=== PATIENT | female | born 1955 | race Two or more races ===

== ENCOUNTER 2023-05-29 15:15 | Inpatient (IN) | payer OTHER ==
[~2023-05-29] VITALS: Ht 154.9 cm; Wt 199.6 kg
[2023-05-29] MEDS ORDERED: DITROPAN XL5 MG (15:18)
[2023-05-29] MEDS ORDERED: FUSION CAPSULE1 EACH PO (15:19)
[2023-05-29] MEDS ORDERED: LASIX20 MG (15:19)
[2023-05-29] MEDS ORDERED: TOPROL XL25 M1 (15:19)
[2023-05-29] MEDS ORDERED: PROBIOTIC1 EAC4 (15:19)
[2023-05-29] MEDS ORDERED: LEVOTHYROXINE25 MCG PO (15:19)
[2023-05-29] MEDS ORDERED: ATACAND4 MG (15:19)
[2023-05-29 17:14] LABS: PH,URINE 6.5 (5.0-8.0); URINE APPEARANCE Clear; URINE BILIRRUBIN Negative (NEGATIVE); URINE BLOOD NHT; URINE COLOR Yellow; URINE GLUCOSE Negative (NEGATIVE); URINE LEUKOCYTE Trace; URINE NITRATE Positive; URINE PROTEIN Negative (NEGATIVE); URINE UROBILINOGEN 0.2 E.U./dl
[2023-05-29 17:18] LABS: URINE BACTERIA 38.6 uL (0.0-1933); URINE EPITHELIAL CELLS 110.1 uL (0.0-38.8); URINE RBC 45.9 uL (0.0-20.8); URINE WBC 40.2 uL (0.0-23.2)
[2023-05-29 17:23] LABS: HEMATOCRIT 26.4 % (36.0-45.00); MEAN CELL VOLUME 75.6 fL (80.00-100.00); MEAN CORPUSCULAR HEMOGLOBIN 23.4 pg (27.00-32.0); MEAN CORPUSCULAR HGB CONC 30.9 g/dl (32.0-36.0); PLATELET COUNT 531 K/uL (150-450); RED BLOOD COUNT 3.49 M/uL (4.00-6.00)
[2023-05-29 17:26] LABS: HEMOGLOBIN 8.2 g/dL (12.0-15.00)
[2023-05-29 17:35] LABS: CALCIUM 8.9 mg/dL (8.5-10.1); CREATININE SERUM 0.5 mg/dL (0.55-1.02); GFR 122.69; POTASSIUM 3.26 mEq/L (3.5-5.1)
[2023-05-29 17:41] LABS: URINE YEAST FEW /hpf
[2023-05-29 17:42] LABS: INR 1.37; PROTHROMBIN TIME 14.1 SECONDS (9.0-11.5)
[2023-05-29 17:43] LABS: PARTIAL THROMBOPLASTIN TIME 41.2 SECONDS (22.0-34.0)
[2023-05-30 08:08] LABS: MEAN CORPUSCULAR HEMOGLOBIN 23.7 pg (27.00-32.0); MEAN CORPUSCULAR HGB CONC 31.2 g/dl (32.0-36.0); PLATELET COUNT 498 K/uL (150-450); RED BLOOD COUNT 3.28 M/uL (4.00-6.00); RED CELL DISTRIBUTION WIDTH 15.6 % (11.5-14.5)
[2023-05-30 08:14] LABS: URINE APPEARANCE Clear; URINE BILIRRUBIN Negative (NEGATIVE); URINE BLOOD Trace; URINE COLOR Yellow; URINE GLUCOSE Negative (NEGATIVE); URINE LEUKOCYTE Trace; URINE NITRATE Negative; URINE PROTEIN Negative (NEGATIVE); URINE UROBILINOGEN 0.2 E.U./dl
[2023-05-30 08:15] LABS: URINE BACTERIA 21.7 uL (0.0-1933); URINE EPITHELIAL CELLS 18.4 uL (0.0-38.8); URINE RBC 4.2 uL (0.0-20.8); URINE WBC 33.1 uL (0.0-23.2)
[2023-05-30 08:19] LABS: ALBUMIN 2.3 gm/dL (3.4-5.0); ALKALINE PHOSPHATASE 106 U/L (50-136); ALT/SGPT 12 U/L (12-78); ANION GAP 5 (10.0-20.0); AST/SGOT 14 U/L (15-37); BILIRUBIN TOTAL 0.24 mg/dL (0.3-1.2); BILIRUBIN,CONJUGATED < 0.10 mg/dL (0.0-0.2); BILIRUBIN,UNCONJUGATED 0.14 mg/dL (0.0-0.6); BLOOD UREA NITROGEN 11 mg/dL (7-18); BUN CREA RATIO 22 (7.0-25.0); CALCIUM 7.9 mg/dL (8.5-10.1); CARBON DIOXIDE 33 mEq/L (21-32); CHLORIDE 103 mmol/L (98-107); CHOL HDL RATIO 4.1 (0-5.0); CHOLESTEROL 122 mg/dL (0-200); CREATININE SERUM 0.49 mg/dL (0.55-1.02); GFR 125.59; GLOBULINA 4.7 G/DL (2.4-3.5); GLUCOSE FASTING 128 mg/dL (65-100); HDL 30 mg/dl (40-60); LDL 70 mg/dl (0-130); OSMOLALITY SERUM 277 MOSM/KG (275-295); POTASSIUM 3.49 mEq/L (3.5-5.1); SODIUM 138 mmol/L (136-145); TRIGLYCERIDES 109 mg/dL (0-150); VLDL 21 (0-39)
[2023-05-30 09:02] LABS: HEMATOCRIT 24.9 % (36.0-45.00)
[2023-05-30 09:03] LABS: HEMOGLOBIN 7.8 g/dL (12.0-15.00)
[2023-05-30 09:20] LABS: ERYTHROCYTE SEDIMENTATION RATE > 130 mm/hr
[2023-05-30 18:27] LABS: ob POSITIVE (NEGATIVE)
[2023-05-31 19:54] LABS: CREATININE SERUM 0.37 mg/dL (0.55-1.02); GFR 173.67; POTASSIUM 3.75 mEq/L (3.5-5.1)
[2023-06-01 07:04] LABS: HEMATOCRIT 26.5 % (36.0-45.00); HEMOGLOBIN 8.6 g/dL (12.0-15.00); MEAN CELL VOLUME 76.9 fL (80.00-100.00); MEAN CORPUSCULAR HGB CONC 32.4 g/dl (32.0-36.0); PLATELET COUNT 443 K/uL (150-450); RED BLOOD COUNT 3.44 M/uL (4.00-6.00); RED CELL DISTRIBUTION WIDTH 16.6 % (11.5-14.5)
[2023-06-01 08:32] LABS: LDH 151 U/L (84-246); PHOSPHOKINASE CREATININE 27 U/L (26-192)
[2023-06-01 08:38] LABS: CKMB < 1.0 NG/ML (0.5-3.6)
[2023-06-02 10:10] LABS: HEMATOCRIT 26.7 % (36.0-45.00); MEAN CELL VOLUME 78.5 fL (80.00-100.00); MEAN CORPUSCULAR HEMOGLOBIN 23.2 pg (27.00-32.0); MEAN CORPUSCULAR HGB CONC 29.6 g/dl (32.0-36.0); PLATELET COUNT 470 K/uL (150-450); RED CELL DISTRIBUTION WIDTH 16.6 % (11.5-14.5)
[2023-06-02 10:16] LABS: HEMOGLOBIN 7.9 g/dL (12.0-15.00)
[2023-06-04 07:01] LABS: FERRITIN 41.5 NG/ML (8-252)
[2023-06-04 11:22] LABS: HEMATOCRIT 32.4 % (36.0-45.00); MEAN CELL VOLUME 79.9 fL (80.00-100.00); PLATELET COUNT 440 K/uL (150-450); RED BLOOD COUNT 4.05 M/uL (4.00-6.00); RED CELL DISTRIBUTION WIDTH 17.3 % (11.5-14.5)
[2023-06-04 11:24] LABS: MEAN CORPUSCULAR HEMOGLOBIN 24.6 pg (27.00-32.0)
[2023-06-04 11:55] LABS: BILIRUBIN TOTAL 0.35 mg/dL (0.3-1.2); CALCIUM 8.3 mg/dL (8.5-10.1); GLOBULINA 4.6 G/DL (2.4-3.5); POTASSIUM 4.01 mEq/L (3.5-5.1); TOTAL PROTEIN 6.6 gm/dL (6.4-8.2)
[2023-06-04 11:58] LABS: GFR 239.56
[2023-06-04 12:03] LABS: CREATININE SERUM 0.28 mg/dL (0.55-1.02)
[2023-06-06 07:57] LABS: HEMATOCRIT 29.2 % (36.0-45.00); HEMOGLOBIN 9.5 g/dL (12.0-15.00); MEAN CELL VOLUME 79.1 fL (80.00-100.00); MEAN CORPUSCULAR HEMOGLOBIN 25.8 pg (27.00-32.0); MEAN CORPUSCULAR HGB CONC 32.6 g/dl (32.0-36.0); PLATELET COUNT 400 K/uL (150-450); RED BLOOD COUNT 3.69 M/uL (4.00-6.00); RED CELL DISTRIBUTION WIDTH 18.2 % (11.5-14.5)
[2023-06-08 08:14] LABS: HEMATOCRIT 29.7 % (36.0-45.00); HEMOGLOBIN 9.5 g/dL (12.0-15.00); MEAN CELL VOLUME 79.7 fL (80.00-100.00); MEAN CORPUSCULAR HEMOGLOBIN 25.4 pg (27.00-32.0); MEAN CORPUSCULAR HGB CONC 31.9 g/dl (32.0-36.0); PLATELET COUNT 339 K/uL (150-450); RED BLOOD COUNT 3.72 M/uL (4.00-6.00); RED CELL DISTRIBUTION WIDTH 18.9 % (11.5-14.5)
[2023-06-09 15:53] LABS: ABG PH 7.425 (7.35-7.45)
[2023-06-09 15:54] LABS: ABG PO2 59.9 mmHg (80-100); ABG pCO2 69.2 mmHg (35-45); BASE EXCESS 16.1 mmol/l; BICARBONATE 44.4 mmol/l (23-25); SaO2 92.3 %; Tco2 46.6 mmol/l; allen test SATISFACTORY; o2 35 %; puncture site RADIAL LEFT
[2023-06-10 06:37] LABS: ABG PH 7.353 (7.35-7.45); ABG PO2 108.9 mmHg (80-100); ABG pCO2 107.6 mmHg (35-45); BASE EXCESS 25.5 mmol/l; SaO2 98.3 %
[2023-06-10 06:38] LABS: BICARBONATE 58.4 mmol/l (23-25); Tco2 61.8 mmol/l; allen test SATISFACTORY; o2 50 %; puncture site RADIAL LEFT
[2023-06-11 08:23] LABS: HEMATOCRIT 32.9 % (36.0-45.00); HEMOGLOBIN 10.1 g/dL (12.0-15.00); MEAN CELL VOLUME 80.5 fL (80.00-100.00); MEAN CORPUSCULAR HEMOGLOBIN 24.7 pg (27.00-32.0); MEAN CORPUSCULAR HGB CONC 30.7 g/dl (32.0-36.0); PLATELET COUNT 360 K/uL (150-450); RED BLOOD COUNT 4.09 M/uL (4.00-6.00); RED CELL DISTRIBUTION WIDTH 19.5 % (11.5-14.5)
[2023-06-11 08:54] LABS: ALBUMIN 2.2 gm/dL (3.4-5.0); ALKALINE PHOSPHATASE 96 U/L (50-136); ALT/SGPT 14 U/L (12-78); AST/SGOT 23 U/L (15-37); BILIRUBIN TOTAL 0.19 mg/dL (0.3-1.2); BLOOD UREA NITROGEN 16 mg/dL (7-18); CALCIUM 8.9 mg/dL (8.5-10.1); CHLORIDE 93 mmol/L (98-107); GLOBULINA 4.3 G/DL (2.4-3.5); GLUCOSE FASTING 124 mg/dL (65-100); LDH 149 U/L (84-246); OSMOLALITY SERUM 280 MOSM/KG (275-295); POTASSIUM 4.34 mEq/L (3.5-5.1); SODIUM 139 mmol/L (136-145); TOTAL PROTEIN 6.5 gm/dL (6.4-8.2)
[2023-06-11 09:35] LABS: BUN CREA RATIO 70 (7.0-25.0); CREATININE SERUM 0.23 mg/dL (0.55-1.02); GFR 300.61
[2023-06-11 09:36] LABS: CARBON DIOXIDE 53 mEq/L (21-32)
[2023-06-14 09:13] LABS: ABG PH 7.368 (7.35-7.45); ABG PO2 127.2 mmHg (80-100); BASE EXCESS 8.3 mmol/l; BICARBONATE 36.3 mmol/l (23-25); SaO2 98.8 %; Tco2 38.3 mmol/l; allen test SATISFACTORY; o2 32 %; puncture site RADIAL RIGHT
[2023-06-14 09:14] LABS: ABG pCO2 64.5 mmHg (35-45)
[2023-06-15 06:32] LABS: HEMATOCRIT 38.3 % (36.0-45.00); MEAN CELL VOLUME 80.1 fL (80.00-100.00); MEAN CORPUSCULAR HEMOGLOBIN 25.4 pg (27.00-32.0); MEAN CORPUSCULAR HGB CONC 31.8 g/dl (32.0-36.0); PLATELET COUNT 386 K/uL (150-450); RED BLOOD COUNT 4.79 M/uL (4.00-6.00)
[2023-06-15 06:47] LABS: HEMOGLOBIN 12.2 g/dL (12.0-15.00)
[2023-06-15 06:57] LABS: ALBUMIN 2.6 gm/dL (3.4-5.0); BILIRUBIN TOTAL 0.32 mg/dL (0.3-1.2); CALCIUM 8.8 mg/dL (8.5-10.1); CREATININE SERUM 0.34 mg/dL (0.55-1.02); GFR 191.47; POTASSIUM 4.18 mEq/L (3.5-5.1); TOTAL PROTEIN 6.6 gm/dL (6.4-8.2)
[2023-06-15 06:58] LABS: C-REACTIVE PROTEIN 1.59 MG/DL (0.00-0.29)
[2023-06-15 07:46] LABS: ERYTHROCYTE SEDIMENTATION RATE 68 mm/hr
[2023-06-17 16:53] LABS: ABG PH 7.511 (7.35-7.45); ABG PO2 130.7 mmHg (80-100); ABG pCO2 42.1 mmHg (35-45); BICARBONATE 32.9 mmol/l (23-25); SaO2 99.3 %; Tco2 34.2 mmol/l
[2023-06-17 17:04] LABS: allen test SATISFACTORY; o2 40 %; puncture site RADIAL LEFT
[2023-06-18 15:08] LABS: ob POSITIVE (NEGATIVE)
[2023-06-21 06:52] LABS: HEMATOCRIT 33.4 % (36.0-45.00); HEMOGLOBIN 10.5 g/dL (12.0-15.00); MEAN CELL VOLUME 80.8 fL (80.00-100.00); MEAN CORPUSCULAR HEMOGLOBIN 25.4 pg (27.00-32.0); MEAN CORPUSCULAR HGB CONC 31.5 g/dl (32.0-36.0); PLATELET COUNT 189 K/uL (150-450); RED BLOOD COUNT 4.13 M/uL (4.00-6.00)
[2023-06-21 07:21] LABS: ALBUMIN 2.3 gm/dL (3.4-5.0); BILIRUBIN TOTAL 0.28 mg/dL (0.3-1.2); CALCIUM 8.4 mg/dL (8.5-10.1); CREATININE SERUM 0.34 mg/dL (0.55-1.02); GFR 191.47; GLOBULINA 3.6 G/DL (2.4-3.5); POTASSIUM 3.86 mEq/L (3.5-5.1); TOTAL PROTEIN 5.9 gm/dL (6.4-8.2)
[2023-06-24 11:51] LABS: ABG PH 7.429 (7.35-7.45); ABG pCO2 58.9 mmHg (35-45); BASE EXCESS 11.2 mmol/l; BICARBONATE 38.1 mmol/l (23-25); SaO2 88.6 %; Tco2 39.9 mmol/l
[2023-06-24 12:52] LABS: ABG PO2 52.2 mmHg (80-100); allen test SATISFACTORY; o2 21 %; puncture site RADIAL LEFT
[2023-06-24 13:41] LABS: HEMATOCRIT 34.3 % (36.0-45.00); MEAN CELL VOLUME 80.1 fL (80.00-100.00); MEAN CORPUSCULAR HEMOGLOBIN 25.6 pg (27.00-32.0); PLATELET COUNT 223 K/uL (150-450); RED BLOOD COUNT 4.28 M/uL (4.00-6.00); RED CELL DISTRIBUTION WIDTH 20.7 % (11.5-14.5)
== END 2023-06-26 19:48 | disposition home or self-care (01) | DRG 264 ==
LOC: ER 15:15 → MEDI 05-30 → MEDJ 06-01 17:22
PROVIDERS: General Practice; Internal Medicine; Internal Medicine Critical Care Medicine; Internal Medicine Hematology & Oncology; Internal Medicine Infectious Disease; Student in an Organized Health Care Education/Training Program; ADMIT Internal Medicine; ATTEND Internal Medicine
PROC: BW21YZZ Computerized Tomography (CT Scan) of Abdomen and Pelvis using Other Contrast (ICD-10-PCS; 2023-05-29)
PROC: BW3GZZZ Magnetic Resonance Imaging (MRI) of Pelvic Region (ICD-10-PCS; 2023-05-31)
PROC: BW3GYZZ Magnetic Resonance Imaging (MRI) of Pelvic Region using Other Contrast (ICD-10-PCS; 2023-05-31)
PROC: 30233N1 Transfusion of Nonautologous Red Blood Cells into Peripheral Vein, Percutaneous Approach (ICD-10-PCS; 2023-05-31)
PROC: 0JB90ZZ Excision of Buttock Subcutaneous Tissue and Fascia, Open Approach (ICD-10-PCS; principal; 2023-06-01)
PROC: 8E0ZXY6 Isolation (ICD-10-PCS; 2023-06-01)
PROC: 3E0F7GC Introduction of Other Therapeutic Substance into Respiratory Tract, Via Natural or Artificial Opening (ICD-10-PCS; 2023-06-05)
PROC: B54DZZZ Ultrasonography of Bilateral Lower Extremity Veins (ICD-10-PCS; 2023-06-08)
PROC: 02HV33Z Insertion of Infusion Device into Superior Vena Cava, Percutaneous Approach (ICD-10-PCS; 2023-06-09)
PROC: 0JB90ZZ Excision of Buttock Subcutaneous Tissue and Fascia, Open Approach (ICD-10-PCS; 2023-06-11)
PROC: 0JBC0ZZ Excision of Pelvic Region Subcutaneous Tissue and Fascia, Open Approach (ICD-10-PCS; 2023-06-23)
DX: I96 Gangrene, not elsewhere classified (principal); L89.324 Pressure ulcer of left buttock, stage 4; J18.8 Other pneumonia, unspecified organism; L89.314 Pressure ulcer of right buttock, stage 4; M86.8X8 Other osteomyelitis, other site; K92.1 Melena; G82.20 Paraplegia, unspecified; J91.8 Pleural effusion in other conditions classified elsewhere; J96.11 Chronic respiratory failure with hypoxia; E87.3 Alkalosis; I82.493 Acute embolism and thrombosis of other specified deep vein of lower extremity, bilateral; D64.89 Other specified anemias; D50.0 Iron deficiency anemia secondary to blood loss (chronic); G47.33 Obstructive sleep apnea (adult) (pediatric); J43.8 Other emphysema; J44.9 Chronic obstructive pulmonary disease, unspecified; B95.2 Enterococcus as the cause of diseases classified elsewhere; B96.89 Other specified bacterial agents as the cause of diseases classified elsewhere; B95.62 Methicillin resistant Staphylococcus aureus infection as the cause of diseases classified elsewhere; E03.9 Hypothyroidism, unspecified; Z79.01 Long term (current) use of anticoagulants; Z74.01 Bed confinement status; Z87.891 Personal history of nicotine dependence
CPT/HCPCS: 72198